=== PATIENT | male | born 1945 | race Caucasian/White ===

== ENCOUNTER 2022-09-20 12:40 | Emergency (ER) | payer MEDICARE ==
[2022-09-20] MEDS ORDERED: Diltiazem 25 MG/5 ML SDV IVPUSH ONE (12:48)
[2022-09-20 12:57] LABS: BASOPHILS ABSOLUTE AUTO 0.04 K/uL (0.00-0.10); BASOPHILS PERCENT AUTO 0.4 % (0.1-1.3); EOSINOPHILS PERCENT AUTO 1.1 % (0.0-5.4); HEMATOCRIT 42.1 % (38.4-49.7); HEMOGLOBIN 13.9 g/dL (12.9-16.9); IMMATURE GRAN ABSOLUTE AUTO 0.03 K/uL (0.00-0.23); IMMATURE GRAN PERCENT AUTO 0.3 % (0.0-0.7); LYMPHOCYTES ABSOLUTE AUTO 1.35 K/uL (0.8-3.3); LYMPHOCYTES PERCENT AUTO 14.3 % (11.4-47.7); MEAN CORPUSCULAR HEMOGLOBIN 30.3 pg (31.6-35.5); MEAN CORPUSCULAR VOLUME 91.9 fL (81.4-99.0); MONOCYTES ABSOLUTE AUTO 0.76 K/uL (0.20-0.90); MONOCYTES PERCENT AUTO 8.1 % (3.3-12.6); NEUTROPHILS ABSOLUTE AUTO 7.15 K/uL (1.0-7.6); NEUTROPHILS PERCENT AUTO 75.8 % (40.0-78.1); PLATELET COUNT,PLT 226 K/uL (130-375); RED BLOOD CELL COUNT 4.58 M/uL (4.14-5.76); WHITE BLOOD CELL COUNT,WBC 9.4 K/uL (3.2-11.0)
[2022-09-20] MEDS ORDERED: Sodium Chloride 0.9% 10 ML Syringe FLUSH PRN (13:01)
[2022-09-20 13:09] LABS: PROTHROMBIN TIME 10.1 sec (9.2-10.6)
[2022-09-20 13:16] LABS: BLOOD UREA NITROGEN,BUN 15 mg/dL (7-18); CALCIUM 8.7 mg/dL (8.5-10.1); CARBON DIOXIDE,CO2 23 mmol/L (21-32); CHLORIDE,CL 104 mmol/L (100-108); CREATININE 1.2 mg/dL (0.8-1.3); ESTIMATED GFR 62 mL/min (>60); GLUCOSE RANDOM 224 mg/dL (74-106); MAGNESIUM 1.1 mg/dL (1.8-2.4); POTASSIUM,K 4.8 mmol/L (3.6-5.2); SODIUM,NA 138 mmol/L (140-148); TROPONIN I HIGH SENSITIVITY 9.4 pg/mL (<=60.3)
[2022-09-20 13:25] LABS: ANION GAP 15.8 mmol/L (5.0-14.0)
[2022-09-20] MEDS ORDERED: Magnesium Oxide 400 MG Tab PO ONE (13:27)
[2022-09-20 14:28] VITALS: BP 118/45; PULSE 89
== END 2022-09-20 15:31 | disposition home or self-care (01) ==
LOC: JP.ED 12:40
DX: R07.89 Other chest pain (principal); I48.91 Unspecified atrial fibrillation; I48.92 Unspecified atrial flutter; Z79.84 Long term (current) use of oral hypoglycemic drugs; Z79.82 Long term (current) use of aspirin; Z79.4 Long term (current) use of insulin; Z79.899 Other long term (current) drug therapy
CPT/HCPCS: 36415; 71046; 80048; 83735; 84484; 85025; 85379; 85610; 93005; 96374; 99285; A9270; J3490

== ENCOUNTER 2022-10-13 19:34 | Emergency (ER) | payer MEDICARE ==
[2022-10-13 20:04] LABS: BASOPHILS ABSOLUTE AUTO 0.04 K/uL (0.00-0.10); BASOPHILS PERCENT AUTO 0.4 % (0.1-1.3); EOSINOPHILS ABSOLUTE AUTO 0.01 K/uL (0.00-0.40); EOSINOPHILS PERCENT AUTO 0.1 % (0.0-5.4); HEMATOCRIT 37.3 % (38.4-49.7); HEMOGLOBIN 12.6 g/dL (12.9-16.9); IMMATURE GRAN ABSOLUTE AUTO 0.03 K/uL (0.00-0.23); IMMATURE GRAN PERCENT AUTO 0.3 % (0.0-0.7); LYMPHOCYTES ABSOLUTE AUTO 1.18 K/uL (0.8-3.3); LYMPHOCYTES PERCENT AUTO 12.3 % (11.4-47.7); MEAN CORPUSCULAR HEMOGLOBIN 30.5 pg (31.6-35.5); MEAN CORPUSCULAR HGB CONC 33.8 g/dL (31.6-35.5); MEAN CORPUSCULAR VOLUME 90.3 fL (81.4-99.0); MONOCYTES ABSOLUTE AUTO 0.59 K/uL (0.20-0.90); MONOCYTES PERCENT AUTO 6.2 % (3.3-12.6); NEUTROPHILS ABSOLUTE AUTO 7.74 K/uL (1.0-7.6); NEUTROPHILS PERCENT AUTO 80.7 % (40.0-78.1); PLATELET COUNT,PLT 208 K/uL (130-375); RED BLOOD CELL COUNT 4.13 M/uL (4.14-5.76); WHITE BLOOD CELL COUNT,WBC 9.6 K/uL (3.2-11.0)
[2022-10-13 20:27] LABS: ANION GAP 17.3 mmol/L (5.0-14.0); CALCIUM 8.7 mg/dL (8.5-10.1); CREATININE 1.1 mg/dL (0.8-1.3); EST CRCL DRUG DOSING (CG) 54.45 mL/min; MAGNESIUM 1.3 mg/dL (1.8-2.4); POTASSIUM,K 4.3 mmol/L (3.6-5.2); TROPONIN I HIGH SENSITIVITY 5.9 pg/mL (<=60.3)
[2022-10-13 21:27] VITALS: BP 156/61; PULSE 66
[2022-10-13] MEDS ORDERED: Calcium Carbonate 500 MG Tab.Chew PO ONE (21:33)
== END 2022-10-13 21:53 | disposition home or self-care (01) ==
LOC: JP.ED 19:34
DX: K21.9 Gastro-esophageal reflux disease without esophagitis (principal); I48.91 Unspecified atrial fibrillation; E78.00 Pure hypercholesterolemia, unspecified; I10 Essential (primary) hypertension; E11.9 Type 2 diabetes mellitus without complications; N40.0 Benign prostatic hyperplasia without lower urinary tract symptoms; Z79.01 Long term (current) use of anticoagulants; Z79.82 Long term (current) use of aspirin; Z79.899 Other long term (current) drug therapy
CPT/HCPCS: 36415; 71046; 80048; 83735; 84484; 85025; 99285; A9270

== ENCOUNTER 2022-11-08 07:30 | Emergency (ER) | payer MEDICARE ==
[2022-11-08] MEDS ORDERED: Sodium Chloride 0.9% 10 ML Syringe FLUSH PRN (07:40)
[2022-11-08 07:52] LABS: BASOPHILS ABSOLUTE AUTO 0.04 K/uL (0.00-0.10); BASOPHILS PERCENT AUTO 0.5 % (0.1-1.3); EOSINOPHILS ABSOLUTE AUTO 0.07 K/uL (0.00-0.40); HEMATOCRIT 38.7 % (38.4-49.7); IMMATURE GRAN ABSOLUTE AUTO 0.05 K/uL (0.00-0.23); IMMATURE GRAN PERCENT AUTO 0.7 % (0.0-0.7); LYMPHOCYTES ABSOLUTE AUTO 1.36 K/uL (0.8-3.3); LYMPHOCYTES PERCENT AUTO 18.6 % (11.4-47.7); MEAN CORPUSCULAR HEMOGLOBIN 30.4 pg (31.6-35.5); MEAN CORPUSCULAR HGB CONC 33.6 g/dL (31.6-35.5); MEAN CORPUSCULAR VOLUME 90.6 fL (81.4-99.0); MONOCYTES ABSOLUTE AUTO 0.67 K/uL (0.20-0.90); MONOCYTES PERCENT AUTO 9.2 % (3.3-12.6); NEUTROPHILS ABSOLUTE AUTO 5.12 K/uL (1.0-7.6); PLATELET COUNT,PLT 209 K/uL (130-375); RED BLOOD CELL COUNT 4.27 M/uL (4.14-5.76); WHITE BLOOD CELL COUNT,WBC 7.3 K/uL (3.2-11.0)
[2022-11-08] MEDS ORDERED: Alum Hydrox/Mag Hydrox/Simeth 15 ML, Lidocaine 2% 15 ML PO ONE ×2 (08:02)
[2022-11-08 08:07] VITALS: BP 166/71; PULSE 53
[2022-11-08 08:08] LABS: INR 1.8
[2022-11-08 08:15] LABS: A/G RATIO 1.2 (1.2-2.2); ALANINE AMINOTRANSFERASE,ALT 128 U/L (12-78); ALBUMIN 3.3 g/dL (3.4-5.0); ALKALINE PHOSPHATASE 87 U/L (46-116); ANION GAP 14.6 mmol/L (5.0-14.0); ASPARTATE AMNIOTRANSFERASE,AST 253 U/L (15-37); BILIRUBIN TOTAL 1.3 mg/dL (0.2-1.0); BLOOD UREA NITROGEN,BUN 16 mg/dL (7-18); CALCIUM 9.2 mg/dL (8.5-10.1); CARBON DIOXIDE,CO2 26 mmol/L (21-32); CHLORIDE,CL 102 mmol/L (100-108); CREATININE 1.1 mg/dL (0.8-1.3); EST CRCL DRUG DOSING (CG) 56.22 mL/min; ESTIMATED GFR 68 mL/min (>60); GLUCOSE RANDOM 97 mg/dL (74-106); POTASSIUM,K 4.6 mmol/L (3.6-5.2); SODIUM,NA 138 mmol/L (140-148); TROPONIN I HIGH SENSITIVITY 11.3 pg/mL (<=60.3)
[2022-11-08] MEDS ORDERED: Iopamidol 612 MG/ML 100 ML Bottle IV ONE (08:30)
[2022-11-08] MEDS ORDERED: Sodium Chloride 0.9% 50 ML IV SCH (08:30)
== END 2022-11-08 11:07 | disposition home or self-care (01) ==
LOC: JP.ED 07:30
DX: D35.00 Benign neoplasm of unspecified adrenal gland (principal); R10.13 Epigastric pain; I48.92 Unspecified atrial flutter; I48.91 Unspecified atrial fibrillation; I10 Essential (primary) hypertension; E78.00 Pure hypercholesterolemia, unspecified; K21.9 Gastro-esophageal reflux disease without esophagitis; E11.9 Type 2 diabetes mellitus without complications; Z79.4 Long term (current) use of insulin; Z79.899 Other long term (current) drug therapy; Z79.01 Long term (current) use of anticoagulants
CPT/HCPCS: 36415; 71045; 74177; 80053; 83690; 84484; 85025; 85610; 93005; 99285; A9270; J3490; Q9967